=== PATIENT | male | born 1950 | race Caucasian/White ===

== ENCOUNTER 2018-12-14 05:11 | Inpatient (IN) | payer MEDICARE, BC ==
[2018-12-14] MEDS ORDERED: POLYMYXIN/BACITRACIN 1L IRRIG (06:54)
[2018-12-14] MEDS: LACTATED RINGER'S 1,000 ML IV (06:56)
[2018-12-14] MEDS ORDERED: ROCURONIUM 50 MG INJ ×2 (06:58→08:13)
[2018-12-14] MEDS ORDERED: PROPOFOL 20 ML (06:58)
[2018-12-14] MEDS ORDERED: CEFAZOLIN 1 GM INJ (06:58)
[2018-12-14] MEDS ORDERED: METOCLOPRAMIDE 10 MG INJ (06:59)
[2018-12-14] MEDS ORDERED: MIDAZOLAM 1 MG/ML 2 ML INJ (06:59)
[2018-12-14] MEDS ORDERED: DEXAMETHASONE 4 MG/ML 5 ML INJ (06:59)
[2018-12-14] MEDS ORDERED: ONDANSETRON 4 MG INJ (06:59)
[2018-12-14] MEDS ORDERED: SURGIFOAM POWDER 1 GM KIT (07:24)
[2018-12-14] MEDS ORDERED: DIPHENHYDRAMINE 50 MG INJ (07:30)
[2018-12-14] MEDS: LIDOCAINE 1%/EPI 30 ML INJ (08:05)
[2018-12-14] MEDS: GELATIN SIZE 100 SPONGE (08:54)
[2018-12-14] MEDS: THROMBIN 5000 UNIT (RECOTHROM) VIAL (08:54)
[2018-12-14] MEDS ORDERED: SUGAMMADEX SODIUM 200 MG/2 ML VIAL IV (09:08)
[2018-12-14] MEDS ORDERED: PHENYLephrine (100 MCG/ML) 10ML SYG (09:12)
[2018-12-14] MEDS ORDERED: EPHEDrine 25 MG/5 ML SYG (09:12)
[2018-12-14] MEDS ORDERED: DIPHENHYDRAMINE 50 MG INJ IV ×2 (09:30→10:00)
[2018-12-14] MEDS ORDERED: EPHEDrine 25 MG/5 ML SYG IV ×2 (09:30→10:00)
[2018-12-14] MEDS ORDERED: HYDROmorphONE 1 MG/5 ML IV SYRINGE IV ×3 (09:30)
[2018-12-14] MEDS ORDERED: METOCLOPRAMIDE 10 MG INJ IV ×2 (09:30→10:00)
[2018-12-14] MEDS ORDERED: FENTAnyl 50 MCG/ML VIAL IV ×6 (09:30→10:00)
[2018-12-14] MEDS ORDERED: OXYCODONE/ACETAMINOPHEN (5/325) TAB PO ×2 (09:30)
[2018-12-14] MEDS ORDERED: LABETALOL HCL 20MG INJ IV ×2 (09:30→10:00)
[2018-12-14] MEDS ORDERED: hydrALAzine 20 MG INJ IV ×2 (09:30→10:00)
[2018-12-14] MEDS ORDERED: ONDANSETRON 4 MG INJ IV ×3 (09:30→10:00)
[2018-12-14] MEDS ORDERED: MEPERIDINE 25 MG INJ IV ×2 (09:30→10:00)
[2018-12-14] MEDS ORDERED: LABETALOL HCL 20MG INJ (09:47)
[2018-12-14] MEDS ORDERED: HYDROmorphONE 0.5 MG/0.5 ML SYG IV ×2 (10:00)
[2018-12-14] MEDS ORDERED: morphine 4 MG/ML VIAL IV (10:00)
[2018-12-14] MEDS ORDERED: niCARdipine 50 MG in SOD CHLORIDE 0.9% 480 ML IV (10:00)
[2018-12-14] MEDS: DEXTROSE 5%-LR 1,000 ML IV ×2 (11:04→17:49)
[2018-12-14] MEDS: HYDROmorphONE 0.5 MG/0.5 ML SYG IV (11:24)
[2018-12-14] MEDS: DEXAMETHASONE 4 MG/ML 1 ML INJ IV ×3 (12:50→23:43)
[2018-12-14] MEDS: CEFAZOLIN 1 GM/50 ML (PMX) 50 ML IVPB ×2 (14:35→21:55)
[2018-12-14 14:39] LABS: ADD MAN DIFF? NO
[2018-12-14 14:45] LABS: ABNORMAL IP MESSAGE 1; BASOPHILS % 0.1 % (0.0-2.0); HEMATOCRIT 38.2 % (42.0-52.0); HEMOGLOBIN 12.9 g/dl (14.0-18.0); LYMPHOCYTES # 0.5 10^3/ul (0.8-2.9); MEAN CORPUSCULAR HEMOGLOBIN 30.1 pg (29.0-33.0); MEAN CORPUSCULAR HGB CONC 33.8 g/dl (32.0-37.0); MEAN PLATELET VOLUME 10.2 fl (7.4-10.4); MONOCYTE # 0.1 10^3/ul (0.3-0.9); MONOCYTES % 0.6 % (0.0-11.0); NEUTROPHIL # 8.4 10^3/ul (1.6-7.5); NEUTROPHILS % 93.9 % (39.0-77.0); PLATELET COUNT 195 10^3/UL (140-415); POSITIVE DIFF @See below; RED BLOOD COUNT 4.29 10^6/ul (4.70-6.10); RED CELL DISTRIBUTION WIDTH 12.3 % (11.5-14.5)
[2018-12-14 15:00] LABS: ANION GAP 8 (5-13); BLOOD UREA NITROGEN 24 mg/dl (7-20); CALCIUM 8.3 mg/dl (8.4-10.2); CARBON DIOXIDE 23 mmol/L (21-31); CHLORIDE 104 mmol/L (97-110); CREATININE 1.47 mg/dl (0.61-1.24); Estimated GFR 48 mL/min (>60); GLUCOSE 224 mg/dl (70-220); POTASSIUM 4.8 mmol/L (3.5-5.1); SODIUM 135 mmol/L (135-144)
[2018-12-14] MEDS: HYDROCODONE/APAP (7.5/325) TAB PO (16:26)
[2018-12-14] MEDS ORDERED: LISINOPRIL 20 MG TAB PO (17:00)
[2018-12-14] MEDS: AMLODIPINE 5 MG TAB PO (17:15)
[2018-12-14] MEDS: HYDROmorphONE 1 MG/ML SYG IV ×2 (17:45→21:56)
[2018-12-14] MEDS: BENAZEPRIL 40 MG TAB PO (18:29)
[2018-12-14] MEDS ORDERED: NON-FORMULARY/PATIENT OWN MED (Amlodipine Besylate/Benazepril (Lotrel 5-40 mg Capsule) 1 E PO (21:00)
[2018-12-14] MEDS: FAMOTIDINE 20 MG TAB PO (21:00)
[2018-12-14] MEDS ORDERED: AMLODIPINE 5 MG TAB PO (21:00)
[2018-12-14] MEDS: ATORVASTATIN 40 MG TAB PO (21:00)
[2018-12-15] MEDS: DEXTROSE 5%-LR 1,000 ML IV ×3 (01:45→17:57)
[2018-12-15] MEDS: HYDROmorphONE 1 MG/ML SYG IV ×4 (01:45→17:56)
[2018-12-15 05:34] LABS: ADD MAN DIFF? NO
[2018-12-15 05:50] LABS: BASOPHILS % 0.1 % (0.0-2.0); HEMATOCRIT 35.7 % (42.0-52.0); HEMOGLOBIN 12.5 g/dl (14.0-18.0); LYMPHOCYTES # 0.6 10^3/ul (0.8-2.9); MEAN CORPUSCULAR HEMOGLOBIN 30.9 pg (29.0-33.0); MEAN CORPUSCULAR VOLUME 88.4 fl (82.0-101.0); MEAN PLATELET VOLUME 10.4 fl (7.4-10.4); MONOCYTE # 0.4 10^3/ul (0.3-0.9); MONOCYTES % 2.3 % (0.0-11.0); NEUTROPHIL # 14.9 10^3/ul (1.6-7.5); NEUTROPHILS % 93.2 % (39.0-77.0); PLATELET COUNT 200 10^3/UL (140-415); RED BLOOD COUNT 4.04 10^6/ul (4.70-6.10)
[2018-12-15 06:00] LABS: HEMOGLOBIN A1C 5.5 % (0-5.9)
[2018-12-15] MEDS: DEXAMETHASONE 4 MG/ML 1 ML INJ IV ×3 (06:02→20:52)
[2018-12-15] MEDS: CEFAZOLIN 1 GM/50 ML (PMX) 50 ML IVPB ×3 (06:03→22:08)
[2018-12-15 06:15] LABS: ANION GAP 7 (5-13); BLOOD UREA NITROGEN 21 mg/dl (7-20); CALCIUM 8.1 mg/dl (8.4-10.2); CARBON DIOXIDE 24 mmol/L (21-31); CHLORIDE 105 mmol/L (97-110); CREATININE 1.18 mg/dl (0.61-1.24); Estimated GFR > 60 mL/min (>60); GLUCOSE 193 mg/dl (70-220); MAGNESIUM 1.7 mg/dl (1.7-2.5); PHOSPHORUS 3.6 mg/dl (2.5-4.9); POTASSIUM 4.7 mmol/L (3.5-5.1); SODIUM 136 mmol/L (135-144)
[2018-12-15] MEDS ORDERED: GLUCOSE GEL 15 GRAM TUBE BUCCAL (08:30)
[2018-12-15] MEDS ORDERED: DEXTROSE 50% 50 ML SYRINGE IV ×2 (08:30)
[2018-12-15] MEDS ORDERED: GLUCOSE GEL 15 GRAM TUBE PO ×2 (08:30)
[2018-12-15] MEDS ORDERED: GLUCAGON 1 MG INJ IM (08:30)
[2018-12-15] MEDS: FAMOTIDINE 20 MG TAB PO ×2 (09:16→20:52)
[2018-12-15] MEDS: BENAZEPRIL 40 MG TAB PO (09:17)
[2018-12-15] MEDS: BUPROPION (XL) 150 MG TAB PO (09:17)
[2018-12-15] MEDS: AMLODIPINE 5 MG TAB PO (09:17)
[2018-12-15] MEDS: FEBUXOSTAT 40 MG TABLET PO (09:17)
[2018-12-15] MEDS: MAGNESIUM SULFATE 2 GM/50 ML 50 ML IVPB (10:17)
[2018-12-15 10:59] LABS: ADD UMIC YES; UR ASCORBIC ACID NEGATIVE (NEGATIVE); UR BILIRUBIN (Dip) NEGATIVE (NEGATIVE); UR BLOOD (Dip) 2+ mg/dL (NEGATIVE); UR CLARITY CLEAR (CLEAR); UR COLOR YELLOW (YELLOW); UR GLUCOSE (Dip) NEGATIVE (NEGATIVE); UR KETONES (Dip) NEGATIVE (NEGATIVE); UR LEUKOCYTE ESTERASE (Dip) NEGATIVE Leu/ul (NEGATIVE); UR MUCUS MODERATE /HPF (NONE SEEN); UR NITRITE (Dip) NEGATIVE (NEGATIVE); UR RBC 32 /HPF (0-5); UR SPECIFIC GRAVITY (Dip) 1.023 (1.003-1.030); UR TOTAL PROTEIN (Dip) NEGATIVE (NEGATIVE); UR UROBILINOGEN (Dip) NEGATIVE (NEGATIVE); UR WBC 5 /HPF (0-5)
[2018-12-15] MEDS: INSULIN ASPART [NOVOLOG] 3 ML PEN SC ×2 (12:42→17:25)
[2018-12-15] MEDS ORDERED: PANTOPRAZOLE 40 MG INJ IV (15:30)
[2018-12-15] MEDS ORDERED: METOCLOPRAMIDE 10 MG INJ IV (16:00)
[2018-12-15] MEDS: HYDROCODONE/APAP (7.5/325) TAB PO (20:54)
[2018-12-15] MEDS: ATORVASTATIN 40 MG TAB PO (21:00)
[2018-12-16] MEDS: DEXAMETHASONE 4 MG/ML 1 ML INJ IV ×4 (01:03→17:28)
[2018-12-16] MEDS: ZOLPIDEM 5 MG TAB PO ×2 (01:09→23:31)
[2018-12-16] MEDS: DEXTROSE 5%-LR 1,000 ML IV (01:13)
[2018-12-16] MEDS: ACCU-CHEK XX (02:23)
[2018-12-16 05:07] LABS: ADD MAN DIFF? NO
[2018-12-16 05:09] LABS: ABNORMAL IP MESSAGE 1; HEMATOCRIT 36.1 % (42.0-52.0); HEMOGLOBIN 12.3 g/dl (14.0-18.0); LYMPHOCYTES # 0.5 10^3/ul (0.8-2.9); LYMPHOCYTES % 3.6 % (15.0-51.0); MEAN CORPUSCULAR HEMOGLOBIN 30.7 pg (29.0-33.0); MEAN CORPUSCULAR HGB CONC 34.1 g/dl (32.0-37.0); MEAN PLATELET VOLUME 10.2 fl (7.4-10.4); MONOCYTE # 0.4 10^3/ul (0.3-0.9); MONOCYTES % 2.5 % (0.0-11.0); NEUTROPHIL # 13.1 10^3/ul (1.6-7.5); NEUTROPHILS % 93.5 % (39.0-77.0); PLATELET COUNT 190 10^3/UL (140-415); POSITIVE DIFF @See below; RED BLOOD COUNT 4.01 10^6/ul (4.70-6.10); RED CELL DISTRIBUTION WIDTH 12.5 % (11.5-14.5)
[2018-12-16 05:31] LABS: ANION GAP 6 (5-13); BLOOD UREA NITROGEN 21 mg/dl (7-20); CALCIUM 7.9 mg/dl (8.4-10.2); CARBON DIOXIDE 25 mmol/L (21-31); CHLORIDE 103 mmol/L (97-110); CREATININE 1.18 mg/dl (0.61-1.24); Estimated GFR > 60 mL/min (>60); GLUCOSE 180 mg/dl (70-220); MAGNESIUM 2.1 mg/dl (1.7-2.5); PHOSPHORUS 3.1 mg/dl (2.5-4.9); POTASSIUM 4.7 mmol/L (3.5-5.1); SODIUM 134 mmol/L (135-144)
[2018-12-16] MEDS: CEFAZOLIN 1 GM/50 ML (PMX) 50 ML IVPB ×2 (05:39→14:18)
[2018-12-16] MEDS: HYDROCODONE/APAP (7.5/325) TAB PO ×3 (05:53→17:27)
[2018-12-16] MEDS: BUPROPION (XL) 150 MG TAB PO (08:24)
[2018-12-16] MEDS: FEBUXOSTAT 40 MG TABLET PO (08:24)
[2018-12-16] MEDS: BENAZEPRIL 40 MG TAB PO (08:25)
[2018-12-16] MEDS: FAMOTIDINE 20 MG TAB PO ×2 (08:25→20:50)
[2018-12-16] MEDS: AMLODIPINE 5 MG TAB PO (08:25)
[2018-12-16] MEDS: SOD CHLORIDE 0.9% 1,000 ML IV (10:46)
[2018-12-16] MEDS: INSULIN ASPART [NOVOLOG] 3 ML PEN SC ×3 (12:49→21:00)
[2018-12-16] MEDS ORDERED: CYCLOBENZAPRINE 10 MG TAB PO (18:30)
[2018-12-16] MEDS ORDERED: CHLORPROMAZINE 10 MG TAB PO (19:30)
[2018-12-16] MEDS: BACLOFEN 10 MG TAB PO (20:01)
[2018-12-16] MEDS: TAMSULOSIN (SR) 0.4 MG CAP PO (20:50)
[2018-12-16] MEDS: ATORVASTATIN 40 MG TAB PO (21:00)
[2018-12-16] MEDS: DEXAMETHASONE 4 MG TAB PO (23:31)
[2018-12-17] MEDS: ACCU-CHEK XX (02:00)
[2018-12-17 05:08] LABS: ADD MAN DIFF? NO
[2018-12-17 05:11] LABS: WHITE BLOOD COUNT 12.5 10^3/ul (4.8-10.8)
[2018-12-17 05:11] LABS: ABNORMAL IP MESSAGE 1; BASOPHILS % 0.1 % (0.0-2.0); HEMATOCRIT 36.2 % (42.0-52.0); HEMOGLOBIN 12.4 g/dl (14.0-18.0); LYMPHOCYTES # 0.6 10^3/ul (0.8-2.9); LYMPHOCYTES % 4.4 % (15.0-51.0); MEAN CORPUSCULAR HEMOGLOBIN 30.5 pg (29.0-33.0); MEAN CORPUSCULAR HGB CONC 34.3 g/dl (32.0-37.0); MEAN CORPUSCULAR VOLUME 88.9 fl (82.0-101.0); MEAN PLATELET VOLUME 10.4 fl (7.4-10.4); MONOCYTE # 0.3 10^3/ul (0.3-0.9); MONOCYTES % 2.4 % (0.0-11.0); NEUTROPHIL # 11.5 10^3/ul (1.6-7.5); NEUTROPHILS % 92.5 % (39.0-77.0); PLATELET COUNT 200 10^3/UL (140-415); POSITIVE DIFF @See below; RED BLOOD COUNT 4.07 10^6/ul (4.70-6.10); RED CELL DISTRIBUTION WIDTH 12.1 % (11.5-14.5)
[2018-12-17 05:47] LABS: ANION GAP 7 (5-13); BLOOD UREA NITROGEN 24 mg/dl (7-20); CALCIUM 7.8 mg/dl (8.4-10.2); CARBON DIOXIDE 26 mmol/L (21-31); CHLORIDE 105 mmol/L (97-110); CREATININE 1.08 mg/dl (0.61-1.24); Estimated GFR > 60 mL/min (>60); GLUCOSE 150 mg/dl (70-220); MAGNESIUM 2.1 mg/dl (1.7-2.5); PHOSPHORUS 3.6 mg/dl (2.5-4.9); POTASSIUM 4.7 mmol/L (3.5-5.1); SODIUM 138 mmol/L (135-144)
[2018-12-17] MEDS: HYDROCODONE/APAP (7.5/325) TAB PO ×2 (08:14→18:20)
[2018-12-17] MEDS: DEXAMETHASONE 4 MG TAB PO ×2 (08:30→20:33)
[2018-12-17] MEDS: BUPROPION (XL) 150 MG TAB PO (08:30)
[2018-12-17] MEDS: FEBUXOSTAT 40 MG TABLET PO (08:30)
[2018-12-17] MEDS: FAMOTIDINE 20 MG TAB PO ×2 (08:30→20:33)
[2018-12-17] MEDS: BENAZEPRIL 40 MG TAB PO (08:31)
[2018-12-17] MEDS: AMLODIPINE 5 MG TAB PO (08:31)
[2018-12-17] MEDS: INSULIN ASPART [NOVOLOG] 3 ML PEN SC ×4 (08:37→20:41)
[2018-12-17] MEDS: BACLOFEN 10 MG TAB PO ×2 (12:56→19:34)
[2018-12-17] MEDS ORDERED: HYDROCODONE/APAP (10/325) TAB PO (20:00)
[2018-12-17] MEDS: HYDROCODONE/APAP (10/325) TAB PO ×2 (20:42→22:39)
[2018-12-17] MEDS: ATORVASTATIN 40 MG TAB PO (21:00)
[2018-12-17] MEDS: TAMSULOSIN (SR) 0.4 MG CAP PO (21:00)
[2018-12-18] MEDS: ACCU-CHEK XX (00:44)
[2018-12-18] MEDS: ZOLPIDEM 5 MG TAB PO ×2 (02:49→21:05)
[2018-12-18] MEDS: DEXAMETHASONE 4 MG TAB PO ×2 (08:56→21:04)
[2018-12-18] MEDS: BENAZEPRIL 40 MG TAB PO (08:56)
[2018-12-18] MEDS: BUPROPION (XL) 150 MG TAB PO (08:57)
[2018-12-18] MEDS: FAMOTIDINE 20 MG TAB PO ×2 (08:57→21:05)
[2018-12-18] MEDS: AMLODIPINE 5 MG TAB PO (08:57)
[2018-12-18] MEDS: FEBUXOSTAT 40 MG TABLET PO (09:59)
[2018-12-18] MEDS: BACLOFEN 10 MG TAB PO (11:24)
[2018-12-18] MEDS: INSULIN ASPART [NOVOLOG] 3 ML PEN SC ×2 (13:00→17:25)
[2018-12-18] MEDS: ATORVASTATIN 40 MG TAB PO ×2 (21:00→21:05)
[2018-12-18] MEDS: HYDROCODONE/APAP (10/325) TAB PO (21:04)
[2018-12-18] MEDS: TAMSULOSIN (SR) 0.4 MG CAP PO (21:05)
[2018-12-19] MEDS: ZOLPIDEM 5 MG TAB PO ×2 (00:01→22:14)
[2018-12-19] MEDS: ACCU-CHEK XX (02:00)
[2018-12-19] MEDS: INSULIN ASPART [NOVOLOG] 3 ML PEN SC ×3 (08:30→17:25)
[2018-12-19] MEDS: BENAZEPRIL 40 MG TAB PO (08:42)
[2018-12-19] MEDS: AMLODIPINE 5 MG TAB PO (08:42)
[2018-12-19] MEDS: BUPROPION (XL) 150 MG TAB PO (08:42)
[2018-12-19] MEDS: FAMOTIDINE 20 MG TAB PO ×2 (08:49→20:38)
[2018-12-19] MEDS: FEBUXOSTAT 40 MG TABLET PO (08:56)
[2018-12-19 09:23] LABS: ADD MAN DIFF? NO
[2018-12-19 09:25] LABS: WHITE BLOOD COUNT 10.2 10^3/ul (4.8-10.8)
[2018-12-19 09:25] LABS: ABNORMAL IP MESSAGE 1; BASOPHILS % 0.1 % (0.0-2.0); HEMATOCRIT 40.5 % (42.0-52.0); HEMOGLOBIN 14.1 g/dl (14.0-18.0); LYMPHOCYTES # 0.5 10^3/ul (0.8-2.9); LYMPHOCYTES % 5.3 % (15.0-51.0); MEAN CORPUSCULAR HEMOGLOBIN 30.3 pg (29.0-33.0); MEAN CORPUSCULAR HGB CONC 34.8 g/dl (32.0-37.0); MEAN CORPUSCULAR VOLUME 86.9 fl (82.0-101.0); MEAN PLATELET VOLUME 10.1 fl (7.4-10.4); MONOCYTE # 0.5 10^3/ul (0.3-0.9); MONOCYTES % 4.4 % (0.0-11.0); NEUTROPHIL # 9.1 10^3/ul (1.6-7.5); NEUTROPHILS % 89.1 % (39.0-77.0); PLATELET COUNT 231 10^3/UL (140-415); POSITIVE DIFF @See below; RED BLOOD COUNT 4.66 10^6/ul (4.70-6.10); RED CELL DISTRIBUTION WIDTH 11.9 % (11.5-14.5)
[2018-12-19 09:45] LABS: ANION GAP 7 (5-13); BLOOD UREA NITROGEN 31 mg/dl (7-20); CALCIUM 8.1 mg/dl (8.4-10.2); CARBON DIOXIDE 23 mmol/L (21-31); CHLORIDE 105 mmol/L (97-110); CREATININE 1.05 mg/dl (0.61-1.24); Estimated GFR > 60 mL/min (>60); GLUCOSE 131 mg/dl (70-220); MAGNESIUM 2.3 mg/dl (1.7-2.5); PHOSPHORUS 4.7 mg/dl (2.5-4.9); POTASSIUM 4.9 mmol/L (3.5-5.1); SODIUM 135 mmol/L (135-144)
[2018-12-19] MEDS: DOCUSATE SODIUM 100 MG CAP PO ×2 (12:47→20:39)
[2018-12-19] MEDS: POLYETHYLENE GLYCOL 17 GM PACKET PO (12:47)
[2018-12-19] MEDS: HYDROCODONE/APAP (10/325) TAB PO (19:08)
[2018-12-19] MEDS: TESTOSTERONE CYPIONATE 200 MG/ML INJ IM (20:36)
[2018-12-19] MEDS: ATORVASTATIN 40 MG TAB PO (21:00)
[2018-12-19] MEDS: TAMSULOSIN (SR) 0.4 MG CAP PO (21:00)
[2018-12-20] MEDS: ACCU-CHEK XX (02:00)
[2018-12-20] MEDS: INSULIN ASPART [NOVOLOG] 3 ML PEN SC ×2 (08:58→12:57)
[2018-12-20] MEDS: BUPROPION (XL) 150 MG TAB PO (09:03)
[2018-12-20] MEDS: FAMOTIDINE 20 MG TAB PO (09:03)
[2018-12-20] MEDS: FEBUXOSTAT 40 MG TABLET PO (09:03)
[2018-12-20] MEDS: AMLODIPINE 5 MG TAB PO (09:03)
[2018-12-20] MEDS: DOCUSATE SODIUM 100 MG CAP PO (09:03)
[2018-12-20] MEDS: POLYETHYLENE GLYCOL 17 GM PACKET PO (09:04)
[2018-12-20] MEDS: BENAZEPRIL 40 MG TAB PO (09:04)
[2018-12-20] MEDS ORDERED: NA PHOSPHATE/BIPHOS 133 ML ENEMA PR (09:30)
[2018-12-20] MEDS: ACETAMINOPHEN 500 MG TAB PO (10:17)
[2018-12-20] MEDS: BISACODYL 10 MG SUPP PR (10:57)
[2018-12-20] MEDS: MAGNESIUM HYDROXIDE 30ML CUP PO (11:17)
== END 2018-12-20 15:15 | DRG 519 ==
LOC: REC 05:11 → MS1 12-15 16:31 → ICU 10:36
PROC: 00NW0ZZ Release Cervical Spinal Cord, Open Approach (ICD-10-PCS; principal; 2018-12-14 07:00)
DX: M48.02 Spinal stenosis, cervical region (principal); G99.2 Myelopathy in diseases classified elsewhere; G95.20 Unspecified cord compression; M62.81 Muscle weakness (generalized); E78.5 Hyperlipidemia, unspecified; K59.00 Constipation, unspecified; M54.12 Radiculopathy, cervical region; I10 Essential (primary) hypertension; R73.9 Hyperglycemia, unspecified; F32.9 Major depressive disorder, single episode, unspecified; I12.9 Hypertensive chronic kidney disease with stage 1 through stage 4 chronic kidney disease, or unspecified chronic kidney disease; F17.290 Nicotine dependence, other tobacco product, uncomplicated; N18.3 Chronic kidney disease, stage 3 (moderate); K21.0 Gastro-esophageal reflux disease with esophagitis; M10.00 Idiopathic gout, unspecified site; T38.0X5A Adverse effect of glucocorticoids and synthetic analogues, initial encounter
CPT/HCPCS: 72040; 72141; 80048; 81001; 82962; 83036; 83735; 84100; 85025; 86850; 86900; 86901; 87081; 87086; 97110; 97116; 97163; 97165; 97530; 97535

== ENCOUNTER 2018-12-20 15:30 | Inpatient (IN) | payer MEDICARE, BC ==
[2018-12-20] MEDS ORDERED: HYDROCODONE/APAP (10/325) TAB PO ×2 (16:00)
[2018-12-20] MEDS ORDERED: BISACODYL 10 MG SUPP PR (16:00)
[2018-12-20] MEDS ORDERED: NA PHOSPHATE/BIPHOS 133 ML ENEMA PR (16:00)
[2018-12-20] MEDS ORDERED: PENDING SANTYL ORDER FOR WOUND CARE XX (16:00)
[2018-12-20] MEDS ORDERED: ONDANSETRON 4 MG INJ IV (16:00)
[2018-12-20] MEDS: ACETAMINOPHEN 500 MG TAB PO (17:56)
[2018-12-20] MEDS: SENNA TAB PO (20:14)
[2018-12-20] MEDS: FAMOTIDINE 20 MG TAB PO (20:14)
[2018-12-20] MEDS: TAMSULOSIN (SR) 0.4 MG CAP PO (20:14)
[2018-12-20] MEDS: DOCUSATE SODIUM 100 MG CAP PO (20:14)
[2018-12-20] MEDS: ATORVASTATIN 40 MG TAB PO (20:15)
[2018-12-20] MEDS: ZOLPIDEM 5 MG TAB PO (21:58)
[2018-12-21] MEDS: POLYETHYLENE GLYCOL 17 GM PACKET PO (08:17)
[2018-12-21] MEDS: BUPROPION (XL) 150 MG TAB PO (08:18)
[2018-12-21] MEDS: FEBUXOSTAT 40 MG TABLET PO (08:18)
[2018-12-21] MEDS: AMLODIPINE 5 MG TAB PO (08:18)
[2018-12-21] MEDS: ACETAMINOPHEN 500 MG TAB PO ×2 (08:18→15:42)
[2018-12-21] MEDS: BENAZEPRIL 40 MG TAB PO (08:18)
[2018-12-21] MEDS: FAMOTIDINE 20 MG TAB PO ×2 (08:18→21:22)
[2018-12-21] MEDS: DOCUSATE SODIUM 100 MG CAP PO ×2 (08:19→21:22)
[2018-12-21] MEDS: BACLOFEN 10 MG TAB PO (08:22)
[2018-12-21 09:09] LABS: ADD MAN DIFF? NO
[2018-12-21 09:15] LABS: BASOPHILS % 0.2 % (0.0-2.0); EOSINOPHILS # 0.2 10^3/ul (0.0-0.5); EOSINOPHILS % 1.3 % (0.0-7.0); HEMATOCRIT 40.8 % (42.0-52.0); LYMPHOCYTES # 1.1 10^3/ul (0.8-2.9); LYMPHOCYTES % 9.3 % (15.0-51.0); MEAN CORPUSCULAR HEMOGLOBIN 30.2 pg (29.0-33.0); MEAN CORPUSCULAR HGB CONC 34.3 g/dl (32.0-37.0); MEAN CORPUSCULAR VOLUME 87.9 fl (82.0-101.0); MEAN PLATELET VOLUME 10.1 fl (7.4-10.4); MONOCYTE # 1.1 10^3/ul (0.3-0.9); MONOCYTES % 9.4 % (0.0-11.0); NEUTROPHIL # 9.4 10^3/ul (1.6-7.5); NEUTROPHILS % 78.7 % (39.0-77.0); PLATELET COUNT 223 10^3/UL (140-415); RED BLOOD COUNT 4.64 10^6/ul (4.70-6.10); RED CELL DISTRIBUTION WIDTH 12.4 % (11.5-14.5)
[2018-12-21 09:31] LABS: ALANINE AMINOTRANSFERASE 35 IU/L (13-69); ALBUMIN 3.1 g/dl (3.3-4.9); ALBUMIN/GLOBULIN RATIO 1.29; ALKALINE PHOSPHATASE 37 IU/L (42-121); ANION GAP 8 (5-13); ASPARTATE AMINO TRANSFERASE 18 IU/L (15-46); BILIRUBIN,INDIRECT 0.9 mg/dl (0-1.1); BILIRUBIN,TOTAL 0.9 mg/dl (0.2-1.3); BLOOD UREA NITROGEN 27 mg/dl (7-20); CALCIUM 7.9 mg/dl (8.4-10.2); CARBON DIOXIDE 23 mmol/L (21-31); CHLORIDE 101 mmol/L (97-110); Estimated GFR > 60 mL/min (>60); GLUCOSE 154 mg/dl (70-220); POTASSIUM 4.6 mmol/L (3.5-5.1); SODIUM 132 mmol/L (135-144); TOTAL PROTEIN 5.5 g/dl (6.1-8.1)
[2018-12-21 16:38] LABS: ADD UMIC NO; UR ASCORBIC ACID NEGATIVE (NEGATIVE); UR BILIRUBIN (Dip) NEGATIVE (NEGATIVE); UR BLOOD (Dip) NEGATIVE (NEGATIVE); UR CLARITY CLEAR (CLEAR); UR COLOR YELLOW (YELLOW); UR GLUCOSE (Dip) NEGATIVE (NEGATIVE); UR KETONES (Dip) NEGATIVE (NEGATIVE); UR LEUKOCYTE ESTERASE (Dip) NEGATIVE Leu/ul (NEGATIVE); UR NITRITE (Dip) NEGATIVE (NEGATIVE); UR SPECIFIC GRAVITY (Dip) 1.021 (1.003-1.030); UR TOTAL PROTEIN (Dip) NEGATIVE (NEGATIVE); UR UROBILINOGEN (Dip) NEGATIVE (NEGATIVE)
[2018-12-21 17:01] LABS: SODIUM,URINE RANDOM 100 mmol/L (30-90)
[2018-12-21] MEDS: TAMSULOSIN (SR) 0.4 MG CAP PO (21:22)
[2018-12-21] MEDS: SENNA TAB PO (21:22)
[2018-12-21] MEDS: ATORVASTATIN 40 MG TAB PO (21:22)
[2018-12-21] MEDS: ZOLPIDEM 5 MG TAB PO (21:22)
[2018-12-22] MEDS: ACETAMINOPHEN 500 MG TAB PO ×2 (05:29→18:24)
[2018-12-22] MEDS: BUPROPION (XL) 150 MG TAB PO (08:48)
[2018-12-22] MEDS: FAMOTIDINE 20 MG TAB PO ×2 (08:48→20:49)
[2018-12-22] MEDS: POLYETHYLENE GLYCOL 17 GM PACKET PO ×2 (08:48→08:53)
[2018-12-22] MEDS: FEBUXOSTAT 40 MG TABLET PO (08:48)
[2018-12-22] MEDS: DOCUSATE SODIUM 100 MG CAP PO ×2 (08:48→20:48)
[2018-12-22] MEDS: BISACODYL 10 MG SUPP PR ×2 (08:51→10:31)
[2018-12-22] MEDS: AMLODIPINE 5 MG TAB PO (08:51)
[2018-12-22] MEDS: BENAZEPRIL 40 MG TAB PO (08:51)
[2018-12-22 11:08] LABS: URIC ACID 3.8 mg/dl (3.1-7.9)
[2018-12-22 11:09] LABS: ANION GAP 9 (5-13); BLOOD UREA NITROGEN 23 mg/dl (7-20); CALCIUM 8.4 mg/dl (8.4-10.2); CARBON DIOXIDE 25 mmol/L (21-31); CHLORIDE 103 mmol/L (97-110); CREATININE 1.32 mg/dl (0.61-1.24); Estimated GFR 54 mL/min (>60); GLUCOSE 117 mg/dl (70-220); POTASSIUM 4.7 mmol/L (3.5-5.1); SODIUM 137 mmol/L (135-144)
[2018-12-22] MEDS: SENNA TAB PO (20:48)
[2018-12-22] MEDS: ZOLPIDEM 5 MG TAB PO (20:49)
[2018-12-22] MEDS: ATORVASTATIN 40 MG TAB PO (20:49)
[2018-12-22] MEDS: TAMSULOSIN (SR) 0.4 MG CAP PO (20:49)
[2018-12-23] MEDS: ACETAMINOPHEN 325 MG TAB PO ×2 (04:16→10:42)
[2018-12-23] MEDS: BISACODYL 10 MG SUPP PR (06:43)
[2018-12-23] MEDS: DOCUSATE SODIUM 100 MG CAP PO ×2 (08:30→21:08)
[2018-12-23] MEDS: FEBUXOSTAT 40 MG TABLET PO (08:30)
[2018-12-23] MEDS: BUPROPION (XL) 150 MG TAB PO (08:30)
[2018-12-23] MEDS: BENAZEPRIL 40 MG TAB PO (08:31)
[2018-12-23] MEDS: AMLODIPINE 5 MG TAB PO (08:31)
[2018-12-23] MEDS: FAMOTIDINE 20 MG TAB PO ×2 (08:34→21:09)
[2018-12-23] MEDS: POLYETHYLENE GLYCOL 17 GM PACKET PO (08:34)
[2018-12-23] MEDS: LACTULOSE 30ML CUP PO (09:00)
[2018-12-23] MEDS: ATORVASTATIN 40 MG TAB PO (21:08)
[2018-12-23] MEDS: traMADol 50 MG TAB PO (21:09)
[2018-12-23] MEDS: TAMSULOSIN (SR) 0.4 MG CAP PO (21:09)
[2018-12-23] MEDS: ZOLPIDEM 5 MG TAB PO (21:09)
[2018-12-23] MEDS: CYCLOBENZAPRINE 10 MG TAB PO (21:09)
[2018-12-23] MEDS: SENNA TAB PO (21:09)
[2018-12-24] MEDS: LACTULOSE 30ML CUP PO (06:32)
[2018-12-24] MEDS: BISACODYL 10 MG SUPP PR (07:00)
[2018-12-24] MEDS: DOCUSATE SODIUM 100 MG CAP PO ×2 (08:45→20:41)
[2018-12-24] MEDS: FEBUXOSTAT 40 MG TABLET PO (08:45)
[2018-12-24] MEDS: BUPROPION (XL) 150 MG TAB PO (08:45)
[2018-12-24] MEDS: POLYETHYLENE GLYCOL 17 GM PACKET PO (08:45)
[2018-12-24] MEDS: FAMOTIDINE 20 MG TAB PO ×2 (08:46→20:42)
[2018-12-24] MEDS: BENAZEPRIL 40 MG TAB PO (08:46)
[2018-12-24] MEDS: AMLODIPINE 5 MG TAB PO (08:46)
[2018-12-24] MEDS: traMADol 50 MG TAB PO ×3 (08:49→21:48)
[2018-12-24] MEDS: SENNA TAB PO (20:41)
[2018-12-24] MEDS: TAMSULOSIN (SR) 0.4 MG CAP PO (20:41)
[2018-12-24] MEDS: ATORVASTATIN 40 MG TAB PO (20:42)
[2018-12-24] MEDS: GABAPENTIN 100 MG CAP PO (21:00)
[2018-12-24] MEDS: ZOLPIDEM 5 MG TAB PO (21:38)
[2018-12-24] MEDS: MAGNESIUM HYDROXIDE 30ML CUP PO (21:55)
[2018-12-25] MEDS: POLYETHYLENE GLYCOL 17 GM PACKET PO (08:16)
[2018-12-25] MEDS: BENAZEPRIL 40 MG TAB PO (08:17)
[2018-12-25] MEDS: traMADol 50 MG TAB PO ×3 (08:17→20:34)
[2018-12-25] MEDS: BUPROPION (XL) 150 MG TAB PO (08:17)
[2018-12-25] MEDS: FEBUXOSTAT 40 MG TABLET PO (08:17)
[2018-12-25] MEDS: FAMOTIDINE 20 MG TAB PO ×2 (08:17→20:30)
[2018-12-25] MEDS: GABAPENTIN 100 MG CAP PO (08:17)
[2018-12-25] MEDS: DOCUSATE SODIUM 100 MG CAP PO ×2 (08:17→20:30)
[2018-12-25] MEDS: AMLODIPINE 5 MG TAB PO (08:17)
[2018-12-25] MEDS: ATORVASTATIN 40 MG TAB PO (20:30)
[2018-12-25] MEDS: SENNA TAB PO (20:30)
[2018-12-25] MEDS: TAMSULOSIN (SR) 0.4 MG CAP PO (20:30)
[2018-12-25] MEDS: ZOLPIDEM 5 MG TAB PO (20:33)
[2018-12-26] MEDS: FAMOTIDINE 20 MG TAB PO ×2 (08:13→21:04)
[2018-12-26] MEDS: POLYETHYLENE GLYCOL 17 GM PACKET PO (08:13)
[2018-12-26] MEDS: BUPROPION (XL) 150 MG TAB PO (08:14)
[2018-12-26] MEDS: AMLODIPINE 5 MG TAB PO (08:14)
[2018-12-26] MEDS: BENAZEPRIL 40 MG TAB PO (08:14)
[2018-12-26] MEDS: DOCUSATE SODIUM 100 MG CAP PO ×2 (08:14→21:05)
[2018-12-26] MEDS: traMADol 50 MG TAB PO ×3 (08:15→21:05)
[2018-12-26] MEDS: FEBUXOSTAT 40 MG TABLET PO (08:15)
[2018-12-26] MEDS: MAGNESIUM HYDROXIDE 30ML CUP PO (16:57)
[2018-12-26] MEDS: SENNA TAB PO (21:00)
[2018-12-26] MEDS ORDERED: PATIENT'S OWN MEDICATION PO (21:00)
[2018-12-26] MEDS: TAMSULOSIN (SR) 0.4 MG CAP PO (21:04)
[2018-12-26] MEDS: ZOLPIDEM 5 MG TAB PO (21:04)
[2018-12-26] MEDS: HYDROCORTISONE 1% 28 GM CR TOP (21:04)
[2018-12-27] MEDS: POLYETHYLENE GLYCOL 17 GM PACKET PO (09:00)
[2018-12-27] MEDS: FAMOTIDINE 20 MG TAB PO ×2 (09:18→20:27)
[2018-12-27] MEDS: BENAZEPRIL 40 MG TAB PO (09:18)
[2018-12-27] MEDS: DOCUSATE SODIUM 100 MG CAP PO ×2 (09:18→20:27)
[2018-12-27] MEDS: FEBUXOSTAT 40 MG TABLET PO (09:18)
[2018-12-27] MEDS: AMLODIPINE 5 MG TAB PO (09:19)
[2018-12-27] MEDS: BUPROPION (XL) 150 MG TAB PO (09:19)
[2018-12-27] MEDS: traMADol 50 MG TAB PO (09:26)
[2018-12-27] MEDS: HYDROCORTISONE 1% 28 GM CR TOP (09:26)
[2018-12-27] MEDS ORDERED: FLUOCINONIDE 0.05%/EMOLL 15 GM CR TOP (14:30)
[2018-12-27] MEDS: CLINDAMYCIN 1% 30 ML BTL TOP ×2 (16:40→20:28)
[2018-12-27] MEDS: FLUOCINONIDE 0.05% 15 GM CR TOP ×2 (16:57→20:28)
[2018-12-27] MEDS: TAMSULOSIN (SR) 0.4 MG CAP PO (20:27)
[2018-12-27] MEDS: SENNA TAB PO (20:27)
[2018-12-28] MEDS: traMADol 50 MG TAB PO ×2 (00:53→08:56)
[2018-12-28] MEDS: FAMOTIDINE 20 MG TAB PO ×2 (08:56→21:17)
[2018-12-28] MEDS: DOCUSATE SODIUM 100 MG CAP PO ×2 (08:56→21:16)
[2018-12-28] MEDS: BENAZEPRIL 40 MG TAB PO (08:57)
[2018-12-28] MEDS: BUPROPION (XL) 150 MG TAB PO (08:57)
[2018-12-28] MEDS: AMLODIPINE 5 MG TAB PO (08:57)
[2018-12-28] MEDS: FEBUXOSTAT 40 MG TABLET PO (08:58)
[2018-12-28] MEDS: POLYETHYLENE GLYCOL 17 GM PACKET PO (08:58)
[2018-12-28] MEDS: FLUOCINONIDE 0.05% 15 GM CR TOP ×2 (09:00→21:19)
[2018-12-28] MEDS: CLINDAMYCIN 1% 30 ML BTL TOP ×2 (09:00→21:19)
[2018-12-28] MEDS: CELECOXIB 100 MG CAP PO (21:16)
[2018-12-28] MEDS: SENNA TAB PO (21:17)
[2018-12-28] MEDS: TAMSULOSIN (SR) 0.4 MG CAP PO (21:17)
[2018-12-28] MEDS: ZOLPIDEM 5 MG TAB PO (21:26)
[2018-12-29] MEDS: CELECOXIB 100 MG CAP PO ×2 (09:16→21:17)
[2018-12-29] MEDS: BUPROPION (XL) 150 MG TAB PO (09:16)
[2018-12-29] MEDS: FAMOTIDINE 20 MG TAB PO ×2 (09:17→21:17)
[2018-12-29] MEDS: FEBUXOSTAT 40 MG TABLET PO (09:17)
[2018-12-29] MEDS: AMLODIPINE 5 MG TAB PO (09:17)
[2018-12-29] MEDS: DOCUSATE SODIUM 100 MG CAP PO ×2 (09:17→21:17)
[2018-12-29] MEDS: BENAZEPRIL 40 MG TAB PO (09:18)
[2018-12-29] MEDS: POLYETHYLENE GLYCOL 17 GM PACKET PO (09:18)
[2018-12-29] MEDS: CLINDAMYCIN 1% 30 ML BTL TOP ×2 (09:25→21:18)
[2018-12-29] MEDS: FLUOCINONIDE 0.05% 15 GM CR TOP ×2 (09:26→21:19)
[2018-12-29] MEDS: LACTULOSE 30ML CUP PO (14:44)
[2018-12-29] MEDS: SENNA TAB PO (21:00)
[2018-12-29] MEDS: TAMSULOSIN (SR) 0.4 MG CAP PO (21:17)
[2018-12-29] MEDS: ZOLPIDEM 5 MG TAB PO (21:20)
[2018-12-30] MEDS: POLYETHYLENE GLYCOL 17 GM PACKET PO (08:48)
[2018-12-30] MEDS: CLINDAMYCIN 1% 30 ML BTL TOP (08:49)
[2018-12-30] MEDS: BUPROPION (XL) 150 MG TAB PO (08:49)
[2018-12-30] MEDS: FLUOCINONIDE 0.05% 15 GM CR TOP (08:49)
[2018-12-30] MEDS: FEBUXOSTAT 40 MG TABLET PO (08:49)
[2018-12-30] MEDS: AMLODIPINE 5 MG TAB PO (08:50)
[2018-12-30] MEDS: DOCUSATE SODIUM 100 MG CAP PO (08:50)
[2018-12-30] MEDS: CELECOXIB 100 MG CAP PO (08:50)
[2018-12-30] MEDS: ACETAMINOPHEN 500 MG TAB PO (08:51)
[2018-12-30] MEDS: BENAZEPRIL 40 MG TAB PO (08:51)
[2018-12-30] MEDS: FAMOTIDINE 20 MG TAB PO (08:52)
[2018-12-30 09:18] LABS: ADD MAN DIFF? NO
[2018-12-30 09:20] LABS: WHITE BLOOD COUNT 7.2 10^3/ul (4.8-10.8)
[2018-12-30 09:20] LABS: BASOPHILS % 0.3 % (0.0-2.0); EOSINOPHILS # 0.1 10^3/ul (0.0-0.5); EOSINOPHILS % 1.7 % (0.0-7.0); HEMATOCRIT 46.2 % (42.0-52.0); HEMOGLOBIN 15.7 g/dl (14.0-18.0); LYMPHOCYTES # 1.1 10^3/ul (0.8-2.9); LYMPHOCYTES % 14.9 % (15.0-51.0); MEAN CORPUSCULAR HEMOGLOBIN 30.2 pg (29.0-33.0); MEAN CORPUSCULAR VOLUME 88.8 fl (82.0-101.0); MEAN PLATELET VOLUME 9.1 fl (7.4-10.4); MONOCYTE # 0.5 10^3/ul (0.3-0.9); NEUTROPHIL # 5.4 10^3/ul (1.6-7.5); NEUTROPHILS % 75.5 % (39.0-77.0); PLATELET COUNT 284 10^3/UL (140-415); RED CELL DISTRIBUTION WIDTH 12.2 % (11.5-14.5)
[2018-12-30 09:49] LABS: ANION GAP 10 (5-13); BLOOD UREA NITROGEN 24 mg/dl (7-20); CALCIUM 9.2 mg/dl (8.4-10.2); CARBON DIOXIDE 24 mmol/L (21-31); CHLORIDE 103 mmol/L (97-110); CREATININE 1.41 mg/dl (0.61-1.24); Estimated GFR 50 mL/min (>60); GLUCOSE 149 mg/dl (70-220); POTASSIUM 4.7 mmol/L (3.5-5.1); SODIUM 137 mmol/L (135-144)
== END 2018-12-30 11:00 | disposition home health service (06) | DRG 945 ==
LOC: VRC 15:30
PROC: F07Z9FZ Gait Training/Functional Ambulation Treatment using Assistive, Adaptive, Supportive or Protective Equipment (ICD-10-PCS; principal; 2018-12-20)
PROC: F07Z8FZ Transfer Training Treatment using Assistive, Adaptive, Supportive or Protective Equipment (ICD-10-PCS; 2018-12-20)
PROC: F07Z5FZ Bed Mobility Treatment using Assistive, Adaptive, Supportive or Protective Equipment (ICD-10-PCS; 2018-12-20)
PROC: F08Z2FZ Grooming/Personal Hygiene Treatment using Assistive, Adaptive, Supportive or Protective Equipment (ICD-10-PCS; 2018-12-20)
PROC: F08Z0FZ Bathing/Showering Techniques Treatment using Assistive, Adaptive, Supportive or Protective Equipment (ICD-10-PCS; 2018-12-20)
PROC: F08Z1FZ Dressing Techniques Treatment using Assistive, Adaptive, Supportive or Protective Equipment (ICD-10-PCS; 2018-12-20)
DX: G89.18 Other acute postprocedural pain (principal); E87.1 Hypo-osmolality and hyponatremia; F33.9 Major depressive disorder, recurrent, unspecified; E78.5 Hyperlipidemia, unspecified; I10 Essential (primary) hypertension; Z98.890 Other specified postprocedural states; K59.00 Constipation, unspecified; F06.31 Mood disorder due to known physiological condition with depressive features; M10.9 Gout, unspecified
CPT/HCPCS: 72141; 80048; 80053; 81003; 84300; 84443; 84560; 85025; 87081; 87086; 97110; 97112; 97116; 97163; 97530; 97535